=== PATIENT | male | born 1955 | race Caucasian/White ===

== ENCOUNTER 2017-05-28 01:59 | Emergency (ER) | payer MEDICAID ==
[~2017-05-28] VITALS: Ht 177.8 cm; Wt 97.5 kg
[2017-05-28 04:05] VITALS: BP 144/92
[2017-05-28] MEDS ORDERED: HYDROcodone-ACET 10/325MG TAB PO ONE ×2 (05:30)
== END 2017-05-28 06:19 | disposition home or self-care (01) ==
LOC: ER 01:59
DX: S52.502A Unspecified fracture of the lower end of left radius, initial encounter for closed fracture (principal); W19.XXXA Unspecified fall, initial encounter; Y93.89 Activity, other specified; Y99.8 Other external cause status; Y92.89 Other specified places as the place of occurrence of the external cause
CPT/HCPCS: 29125; 73090; 73110; 73200

== ENCOUNTER 2021-08-11 22:34 | Emergency (ER) | payer OTHER, MEDICAID ==
[~2021-08-11] VITALS: Ht 177.8 cm; Wt 97.5 kg
[2021-08-11 23:41] VITALS: BP 136/89
[2021-08-12 02:31] LABS: Urine Bacteria FEW /hpf (None Seen); Urine Blood Negative /uL (Negative); Urine Specific Gravity 1.004 (1.001-1.035); Urine WBC <1 /hpf (0 - 3)
== END 2021-08-12 03:10 | disposition left against medical advice (07) ==
LOC: ER 22:34
DX: R39.11 Hesitancy of micturition (principal); E11.9 Type 2 diabetes mellitus without complications
CPT/HCPCS: 81001